=== PATIENT | female | born 1980 | race Caucasian/White ===

== ENCOUNTER 2018-04-12 06:52 | Day surgery (SDC) | payer OTHER ==
[~2018-04-12] VITALS: Ht 160 cm; Wt 51.7 kg
[2018-04-12] MEDS ORDERED: CEFAZOLIN SODIUM 1 GM/D5W PM 50 ML IV SCH (07:25)
[2018-04-12] MEDS ORDERED: BUPIVACAINE-MPF 0.25% 30 ML VIAL INJ ONE (09:03)
[2018-04-12] MEDS ORDERED: fentaNYL 0.05 MG/ML VIAL ONE (09:09)
[2018-04-12] MEDS ORDERED: GLYCOPYRROLATE 0.2 MG/ML VIAL ONE (09:09)
[2018-04-12] MEDS ORDERED: ONDANSETRON 4 MG/2 ML VIAL ONE (09:09)
[2018-04-12] MEDS ORDERED: DESFLURANE 240 ML BTL INH ONE (09:09)
[2018-04-12] MEDS ORDERED: ROCURONIUM 50 MG/5 ML VIAL IV ONE (09:09)
[2018-04-12] MEDS ORDERED: PROPOFOL 200 MG/20 ML VIAL IV ONE (09:09)
[2018-04-12] MEDS ORDERED: KETOROLAC 30 MG/ML VIAL ONE (09:09)
[2018-04-12] MEDS ORDERED: PHENYLEPHRINE 10 MG/ML VIAL ONE (09:09)
[2018-04-12] MEDS ORDERED: HYDROmorphone PFS 2 MG/ML SYR ONE (09:09)
[2018-04-12] MEDS ORDERED: NACL 0.9% 1,000 ML IV SCH (10:36)
[2018-04-12] MEDS ORDERED: HYDROmorphone 1 MG/ML AMP IVP PRN (10:40)
[2018-04-12] MEDS ORDERED: MORPHINE SULFATE 2 MG/ML SYR IVP PRN (10:40)
[2018-04-12] MEDS ORDERED: ONDANSETRON 4 MG/2 ML VIAL IV PRN (10:40)
[2018-04-12] MEDS ORDERED: HYDROcodone/APAP 5/325 MG 1 TAB TAB PO PRN (10:40)
[2018-04-12] MEDS ORDERED: MORPHINE SULFATE 4 MG/ML SYR IV PRN (10:40)
== END 2018-04-12 14:00 | disposition home or self-care (01) ==
LOC: MDS 06:52 → MMU 06:53 → MDS 14:00
PROVIDERS: ATTEND Surgery
DX: K80.20 Calculus of gallbladder without cholecystitis without obstruction (principal); K82.4 Cholesterolosis of gallbladder; Z98.51 Tubal ligation status
CPT/HCPCS: 36415; 47562; 71045; 82374; 86886; 86900; 86901; J0690; J1170; J1885; J2370; J2405; J2704; J3010; J3490; J7030; J7120

== ENCOUNTER 2019-02-19 22:40 | Emergency (ER) | payer OTHER ==
[~2019-02-19] VITALS: Ht 160 cm; Wt 52.2 kg
[2019-02-19 22:45] VITALS: BP 107/84
--- NOTE | 2019-02-19 22:51 | NUR ---
PT AMBULATED TO THE RESTROOM, AND THEN TO BED #11
--- NOTE | 2019-02-19 22:59 | NUR ---
PT TO ED WITH C/O SOB X 1 HR. PT REPORTS NOT BEING ABLE TO CATCH HER BREATH WHEN COUGHING. LUNG SOUNDS CLEAR TO ASCULTATION BILATERALLY. NO DISTRESS NOTED. PT ABLE TO SPEAK IN FULL CLEAR SENTENCES WITHOUT ANY DIFFICULTY. PT PLACED INTO BED, PENDING MD LACEY.
[2019-02-19] MEDS ORDERED: ALBUTEROL 0.083% 2.5 MG/3 ML NEBU INH ONE (23:25)
--- NOTE | 2019-02-19 23:35 | NUR ---
RT AT BEDSIDE FOR INTERVENTION.
[2019-02-20 01:23] VITALS: BP 128/69
== END 2019-02-20 01:22 | disposition home or self-care (01) ==
LOC: MED 22:40
DX: J06.9 Acute upper respiratory infection, unspecified (principal)
CPT/HCPCS: 71045; 94640; 99283; J7613